=== PATIENT | female | born 1945 | race Caucasian/White ===

== ENCOUNTER 2017-06-18 13:20 | Inpatient (IN) | payer OTHER ==
[~2017-06-18] VITALS: Ht 152.4 cm; Wt 101.2 kg
[~2017-06-18 13:20] MED LIST: ADULT LOW DOSE81 M1 PO; ADVAIR 250/501 DISK IH; AEROBIKA1 EACH MC; AERONEB GO NEB1 EACH MC; AMOX TR-K CLV1 EAC4 PO; ASCORBIC ACID500 M3 PO; ASPIRIN81 M1 PO; ATIVAN0.5 MG PO; AVELOX400 MG PO; AZATHIOPRINE50 MG PO; BALANCE B-501 EAC1 PO; CALCIO DEL MAR500 MG PO; CALCIUM + VITA1 EAC2 PO; CALCIUM 500 MG1 EACH PO; CALCIUM500 M3 PO; CEFTIN500 MG PO; CHILDREN'S ASPI81 M1 PO; COMPLEX B-1001 EACH PO; CYANOCOBALAM1000 MCG PO; CYCLOPHOSPHAMID50 M2 PO; DULCOLAX5 MG PO; DUONEB 2.5-0.5 M3 ML AEROSOL; FISH OIL OMEGA1 EACH PO; FISH OIL300 MG PO; FLAX OIL1000 MG PO; FUROSEMIDE40 MG PO; GLUCOSAMINE &1 EAC1 PO; GUAIFENESIN WI120 M1 PO; HAIR SKIN NAIL1 EACH PO; HAIR, SKIN & N1 EAC1 PO; LASIX20 MG PO; LASIX40 MG PO; LEVAQUIN500 MG PO; LEVOFLOXACIN750 MG PO; LO-DOSE ASPIRIN81 M1 PO; LOPRESSOR50 MG PO; LORAZEPAM0.5 MG PO; LUTEIN PO; METOPROLOL SUCC25 MG PO; METOPROLOL TART25 MG PO; METOPROLOL TART50 MG PO; MICRO-K10 ME2 PO; MIRALAX255 GM PO; MULTIVITAMIN1 EAC2 PO; MULTIVITAMINS1 EAC2 PO; OCUVITE LUTEIN1 EACH PO; POTASSIUM CHLO10 ME3 PO; PREDNISONE10 MG PO; PREDNISONE20 MG PO; PREDNISONE5 MG PO; PROAIR HFA8.5 GM IH; PROBIOTIC1 EAC1 PO; PROVENTIL HFA6.7 GM IH; PROVENTIL,2.5 MG/0.5 AEROSOL; SINGULAIR10 MG PO; SPIRIVA RESPIMAT4 GM IH; SPIRIVA1 INHALATI IH; SUPER CALCIUM600 MG PO; TOPROL XL6.25 MG PO; TRAMADOL HCL50 MG PO; TYLENOL EXTRA500 MG PO; Toprol XL PO; ULTRAM50 MG PO; VENTOLIN HFA18 GM IH; VITAMIN B COMP1 EACH PO; VITAMIN D1000 UNIT PO; VITAMIN D2000 INTUN PO; VITAMIN D31000 UNI2 PO; VITAMIN D31000 UNIT PO; VITAMIN D35000 UNIT PO; VITAMIN E100 UNIT PO; VITAMIN E1000 UNI1 PO; ZESTRIL5 MG PO; ZITHROMAX250 MG PO
[2017-06-18 14:25] LABS: EOSINOPHIL (%) 1.1 % (0-5); EOSINOPHIL COUNT 0.2 K/uL (0-0.3); HEMATOCRIT 37.6 % (36.0-46.0); IMMATURE GRANULOCYTE (%) 0.9 % (0.0-0.7); IMMATURE GRANULOCYTE COUNT 0.1 K/uL; INSTRUMENT ABS NEUTROPHIL CT 13.1 K/uL; LYMPHOCYTE COUNT 0.9 K/uL (1.0-2.8); MCH 29.5 PG (29.0-34.0); MCHC 32.7 G/DL (30.0-36.0); MCV 90.2 FL (83-99); MEAN PLAT.VOLUME 9.3 uM^3 (9.5-12.4); MONOCYTE (%) 6.1 % (3-12); MONOCYTE COUNT 0.9 K/uL (0-0.8); NEUTROPHIL COUNT 13.1 K/uL (1.8-6.4); PLATELET COUNT 211 K/uL (156-360); RBC DIS.WIDTH-CV 13.7 % (11.8-14.6); RBC DIS.WIDTH-SD 45.3 % (39-53); RED BLOOD COUNT 4.17 M/uL (3.80-5.20); WHITE BLOOD COUNT 15.2 K/uL (4.1-10.2)
[2017-06-18 14:34] LABS: CHLORIDE 102 mEq/L (99-109); POTASSIUM 3.4 mEq/L (3.7-5.4); SODIUM 141 mEq/L (136-147)
[2017-06-18 14:36] LABS: GLUCOSE 173 mg/dL (70-99)
[2017-06-18 14:37] LABS: ANION GAP 10 MEQ/L (2-14)
[2017-06-18 14:39] LABS: GFR ESTIMATE (CALCULATED) 47 mL/min/
[2017-06-18 14:40] LABS: UREA NITROGEN (BUN) 31 mg/dL (9-23)
[2017-06-18 14:46] LABS: TROP-I INTERPRETATION NEGATIVE; TROPONIN-I 0.03 ng/mL (0.0-0.30)
[2017-06-18] MEDS ORDERED: FLONASE16 G1 BOTH NARES (18:33)
[2017-06-18] MEDS ORDERED: PREDNISONE2.5 MG PO (18:33)
[2017-06-18] MEDS ORDERED: ADVAIR 250/501 DISK IH (18:36)
[2017-06-18] MEDS ORDERED: MIRALAX17 GM PO (18:37)
[2017-06-18] MEDS ORDERED: POTASSIUM CHLO10 ME4 PO (18:37)
[2017-06-18] MEDS ORDERED: CHILD ASPIRIN81 M1 PO (18:39)
[2017-06-18] MEDS ORDERED: LASIX20 MG PO (18:40)
[2017-06-18] MEDS ORDERED: LASIX40 MG PO (18:40)
[2017-06-18] MEDS ORDERED: CALCIUM600 M1 PO (18:41)
[2017-06-18] MEDS ORDERED: TYLENOL EXTRA500 MG PO (18:43)
[2017-06-18 22:10] LABS: POINT-OF-CARE METER ID UU13113725
[2017-06-18 22:20] VITALS: BP 132/60
[2017-06-19 04:00] VITALS: BP 113/55
[2017-06-19 06:18] LABS: HEMATOCRIT 34.1 % (36.0-46.0); MCH 29.8 PG (29.0-34.0); MCHC 32.8 G/DL (30.0-36.0); MCV 90.7 FL (83-99); MEAN PLAT.VOLUME 9.7 uM^3 (9.5-12.4); PLATELET COUNT 193 K/uL (156-360); RBC DIS.WIDTH-CV 13.7 % (11.8-14.6); RBC DIS.WIDTH-SD 45.1 % (39-53); RED BLOOD COUNT 3.76 M/uL (3.80-5.20); WHITE BLOOD COUNT 12.7 K/uL (4.1-10.2)
[2017-06-19 06:39] LABS: POINT-OF-CARE METER ID UU13113774
[2017-06-19 06:43] LABS: ANION GAP 12 MEQ/L (2-14); CHLORIDE 101 MEQ/L (99-109); GFR ESTIMATE (CALCULATED) 52 mL/min/; GLUCOSE 181 mg/dL (70-99); SAMPLE HEMOLYSIS CHECK 0; SAMPLE ICTERIC CHECK 0; SAMPLE LIPEMIA CHECK 0; SODIUM 143 MEQ/L (136-147); UREA NITROGEN (BUN) 29 mg/dL (9-23)
[2017-06-19 06:44] LABS: POTASSIUM 4.7 MEQ/L (3.7-5.4)
[2017-06-19 08:38] VITALS: BP 117/68
[2017-06-19 11:03] LABS: POINT-OF-CARE METER ID UU13113774
[2017-06-19 12:43] LABS: TROP-I INTERPRETATION NEGATIVE; TROPONIN-I 0.02 ng/mL (0.0-0.30)
[2017-06-19 15:48] VITALS: BP 109/61
[2017-06-19 16:54] LABS: POINT-OF-CARE METER ID UU13113774
[2017-06-19 20:27] VITALS: BP 124/61
[2017-06-19 21:30] LABS: POINT-OF-CARE METER ID UU13113774
[2017-06-20] VITALS (7 sets, daily range): BP systolic 120–155; BP diastolic 57–72
[2017-06-20 06:05] LABS: EOSINOPHIL (%) 0 % (0-5); HEMATOCRIT 34.1 % (36.0-46.0); IMMATURE GRANULOCYTE (%) 0.7 % (0.0-0.7); IMMATURE GRANULOCYTE COUNT 0.1 K/uL; INSTRUMENT ABS NEUTROPHIL CT 12.6 K/uL; LYMPHOCYTE COUNT 0.3 K/uL (1.0-2.8); MCH 29.6 PG (29.0-34.0); MCHC 32.3 G/DL (30.0-36.0); MCV 91.7 FL (83-99); MEAN PLAT.VOLUME 9.8 uM^3 (9.5-12.4); MONOCYTE (%) 3.1 % (3-12); MONOCYTE COUNT 0.4 K/uL (0-0.8); NEUTROPHIL COUNT 12.6 K/uL (1.8-6.4); PLATELET COUNT 190 K/uL (156-360); RBC DIS.WIDTH-CV 13.8 % (11.8-14.6); RBC DIS.WIDTH-SD 46.7 % (39-53); RED BLOOD COUNT 3.72 M/uL (3.80-5.20); WHITE BLOOD COUNT 13.4 K/uL (4.1-10.2)
[2017-06-20 06:19] LABS: POINT-OF-CARE METER ID UU13113774
[2017-06-20 06:27] LABS: ANION GAP 11 MEQ/L (2-14); CHLORIDE 102 MEQ/L (99-109); POTASSIUM 4.4 MEQ/L (3.7-5.4); SAMPLE HEMOLYSIS CHECK 0; SAMPLE ICTERIC CHECK 0; SAMPLE LIPEMIA CHECK 0; SODIUM 143 MEQ/L (136-147)
[2017-06-20 06:33] LABS: GFR ESTIMATE (CALCULATED) 52 mL/min/; GLUCOSE 177 mg/dL (70-99); UREA NITROGEN (BUN) 33 mg/dL (9-23)
[2017-06-20 11:19] LABS: POINT-OF-CARE METER ID UU13113725
[2017-06-20 16:16] LABS: POINT-OF-CARE METER ID UU13113774
[2017-06-20 21:36] LABS: POINT-OF-CARE METER ID UU13113725
[2017-06-21 03:46] VITALS: BP 138/71
[2017-06-21 06:24] LABS: POINT-OF-CARE METER ID UU13113725
[2017-06-21 06:36] LABS: HEMATOCRIT 35.1 % (36.0-46.0); MCH 29.7 PG (29.0-34.0); MCHC 32.8 G/DL (30.0-36.0); MCV 90.7 FL (83-99); NRBC (%) 0.3 /100 WBC (0-0); RBC DIS.WIDTH-CV 13.7 % (11.8-14.6); RBC DIS.WIDTH-SD 45.4 % (39-53); RED BLOOD COUNT 3.87 M/uL (3.80-5.20); WHITE BLOOD COUNT 11.6 K/uL (4.1-10.2)
[2017-06-21 07:18] LABS: HEMATOLOGY COMMENT 1 SMEAR COMPATIBLE; MEAN PLAT.VOLUME 10.5 uM^3 (9.5-12.4); PLAT.SUFFICIENCY ADEQUATE; PLATELET COUNT 186 K/uL (156-360)
[2017-06-21 08:55] VITALS: BP 159/71
[2017-06-21 11:18] LABS: POINT-OF-CARE METER ID UU13113774
[2017-06-21 16:25] LABS: POINT-OF-CARE METER ID UU13113774
[2017-06-21 16:50] VITALS: BP 130/63
[2017-06-21 19:22] VITALS: BP 119/66
[2017-06-21 23:06] LABS: POINT-OF-CARE METER ID UU13113774
[2017-06-21 23:16] VITALS: BP 177/81
[2017-06-22 03:55] VITALS: BP 146/70
[2017-06-22 05:56] LABS: POINT-OF-CARE METER ID UU13113774
[2017-06-22 07:47] VITALS: BP 149/70
[2017-06-22 10:23] LABS: POINT-OF-CARE METER ID UU13113774
[2017-06-22 16:13] LABS: POINT-OF-CARE METER ID UU13113774
[2017-06-22 17:10] VITALS: BP 129/64
[2017-06-22 20:45] LABS: POINT-OF-CARE METER ID UU13113725
[2017-06-22 23:21] VITALS: BP 122/59
[2017-06-23 05:54] LABS: POINT-OF-CARE METER ID UU13113725
[2017-06-23 06:16] LABS: HEMATOCRIT 33.3 % (36.0-46.0); MCH 28.8 PG (29.0-34.0); MCHC 31.8 G/DL (30.0-36.0); MCV 90.5 FL (83-99); MEAN PLAT.VOLUME 9.9 uM^3 (9.5-12.4); PLATELET COUNT 176 K/uL (156-360); RBC DIS.WIDTH-CV 13.4 % (11.8-14.6); RBC DIS.WIDTH-SD 44.9 % (39-53); RED BLOOD COUNT 3.68 M/uL (3.80-5.20); WHITE BLOOD COUNT 8.5 K/uL (4.1-10.2)
[2017-06-23 08:05] VITALS: BP 145/72
[2017-06-23] MEDS ORDERED: FLORASTOR250 MG PO (11:33)
[2017-06-23] MEDS ORDERED: XOPENEX1.25 MG/3 IH (11:33)
[2017-06-23] MEDS ORDERED: CEFDINIR300 MG PO (11:33)
[2017-06-23] MEDS ORDERED: PREDNISONE10 MG PO (11:33)
[2017-06-23] MEDS ORDERED: MUCINEX600 MG PO (11:33)
== END 2017-06-23 14:22 | disposition home or self-care (01) | DRG 199 ==
LOC: EME 13:20 → 5EAST 19:26 → EDOF 19:26 → ENRESERV 19:27 → 5EAST 21:44 → ENPENDDIS 06-23 → 5EAST 06-23 14:22
PROVIDERS: Emergency Medicine; Hospitalist; Internal Medicine; Physician Assistant Medical
PROC: 5A09357 Assistance with Respiratory Ventilation, Less than 24 Consecutive Hours, Continuous Positive Airway Pressure (ICD-10-PCS; principal; 2017-06-18)
DX: J98.2 Interstitial emphysema (principal); J96.01 Acute respiratory failure with hypoxia; J45.901 Unspecified asthma with (acute) exacerbation; M31.31 Wegener's granulomatosis with renal involvement; J20.9 Acute bronchitis, unspecified; J47.0 Bronchiectasis with acute lower respiratory infection; I13.0 Hypertensive heart and chronic kidney disease with heart failure and stage 1 through stage 4 chronic kidney disease, or unspecified chronic kidney disease; N18.3 Chronic kidney disease, stage 3 (moderate); I50.32 Chronic diastolic (congestive) heart failure; I48.0 Paroxysmal atrial fibrillation; Z99.81 Dependence on supplemental oxygen; E66.01 Morbid (severe) obesity due to excess calories; Z68.41 Body mass index [BMI] 40.0-44.9, adult; G47.33 Obstructive sleep apnea (adult) (pediatric); E87.6 Hypokalemia; J04.0 Acute laryngitis; R19.7 Diarrhea, unspecified; E78.5 Hyperlipidemia, unspecified; M19.90 Unspecified osteoarthritis, unspecified site; R73.9 Hyperglycemia, unspecified; T38.0X5A Adverse effect of glucocorticoids and synthetic analogues, initial encounter; R60.0 Localized edema; T63.301S Toxic effect of unspecified spider venom, accidental (unintentional), sequela; Z86.73 Personal history of transient ischemic attack (TIA), and cerebral infarction without residual deficits; Z85.828 Personal history of other malignant neoplasm of skin; Z95.3 Presence of xenogenic heart valve; Z87.891 Personal history of nicotine dependence; Z79.52 Long term (current) use of systemic steroids; Z79.899 Other long term (current) drug therapy; Z79.82 Long term (current) use of aspirin; Z80.0 Family history of malignant neoplasm of digestive organs; Z82.49 Family history of ischemic heart disease and other diseases of the circulatory system
CPT/HCPCS: 71010; 71250; 71275; 80048; 82948; 83880; 84484; 85025; 85027; 85379; 87070; 87106; 87205; 87502; 94640; 94640 76; 94660; 94760; 94799; 99202; 99281; 99285; J0295; J0692; J1815; J1956; J2930; J3475; J7050; J7500; J7512

== ENCOUNTER 2017-11-05 21:57 | Inpatient (IN) | payer OTHER ==
[~2017-11-05] VITALS: Ht 152.4 cm; Wt 109.4 kg
[~2017-11-05 21:57] MED LIST changes: +ACID REDUCER20 MG PO; +BACTROBAN NASAL1 G1 BOTH NARES; +CALCIUM 600 +1 EAC9 PO; +CALCIUM600 M1 PO; +CEFDINIR300 MG PO; +CHILD ASPIRIN81 M1 PO; +FLONASE16 G1 BOTH NARES; +FLORASTOR250 MG PO; +GLUCOSA-CHOND-1 EACH PO; +IMURAN50 MG PO; +MIRALAX17 GM PO; +MUCINEX600 MG PO; +POTASSIUM CHLO10 ME4 PO; +PREDNISONE2.5 MG PO; +XOPENEX1.25 MG/3 IH; +ZINC50 M1 PO
[2017-11-06 09:47] VITALS: BP 134/63
[2017-11-06 14:53] LABS: HEMATOCRIT 33.6 % (36.0-46.0); MCH 29.5 PG (29.0-34.0); MCHC 32.7 G/DL (30.0-36.0); MCV 90.1 FL (83-99); PLATELET COUNT 189 K/uL (156-360); RBC DIS.WIDTH-CV 13.6 % (11.8-14.6); RBC DIS.WIDTH-SD 44.4 % (39-53); RED BLOOD COUNT 3.73 M/uL (3.80-5.20); WHITE BLOOD COUNT 6.8 K/uL (4.1-10.2)
[2017-11-06 16:01] VITALS: BP 118/58
[2017-11-06 20:15] VITALS: BP 126/60
[2017-11-07 00:22] VITALS: BP 116/60
[2017-11-07 04:31] VITALS: BP 112/59
[2017-11-07 06:16] LABS: HEMATOCRIT 31.5 % (36.0-46.0); HEMOGLOBIN 10.1 G/DL (11.9-15.5); MCV 89.5 FL (83-99)
[2017-11-07 06:27] LABS: CHLORIDE 105 MEQ/L (99-109); CREATININE 0.9 MG/DL (0.6-1.3); GFR ESTIMATE (CALCULATED) > 59 mL/min/; GLUCOSE 114 mg/dL (70-99); POTASSIUM 3.7 MEQ/L (3.7-5.4); SODIUM 143 MEQ/L (136-147); UREA NITROGEN (BUN) 23 mg/dL (9-23)
[2017-11-07 08:00] VITALS: BP 114/58
[2017-11-07 15:42] VITALS: BP 109/59
[2017-11-07 20:15] VITALS: BP 112/58
[2017-11-08] VITALS (7 sets, daily range): BP systolic 91–143; BP diastolic 52–75
[2017-11-08 06:01] LABS: HEMATOCRIT 30.8 % (36.0-46.0); HEMOGLOBIN 9.8 G/DL (11.9-15.5); MCV 90.1 FL (83-99)
[2017-11-08 20:11] LABS: INTER. NORMALIZED RATIO 1.3
[2017-11-08 20:14] LABS: PTT 29.8 SEC (25-37)
[2017-11-08 20:18] LABS: ALBUMIN 3.4 G/DL (3.2-4.8); BASOPHIL (%) 0.6 % (0-1); BASOPHIL COUNT 0.1 K/uL (0-0.1); CHLORIDE 105 MEQ/L (99-109); EOSINOPHIL (%) 2.5 % (0-5); EOSINOPHIL COUNT 0.3 K/uL (0-0.3); HEMATOCRIT 30.9 % (36.0-46.0); HEMOGLOBIN 10.2 G/DL (11.9-15.5); IMMATURE GRANULOCYTE (%) 0.5 % (0.0-0.7); LYMPHOCYTE (%) 11.5 % (15-42); LYMPHOCYTE COUNT 1.3 K/uL (1.0-2.8); MCH 29.3 PG (29.0-34.0); MCV 88.8 FL (83-99); MONOCYTE (%) 10.1 % (3-12); MONOCYTE COUNT 1.1 K/uL (0-0.8); NEUTROPHIL (%) 74.8 % (45-76); NEUTROPHIL COUNT 8.3 K/uL (1.8-6.4); PLATELET COUNT 179 K/uL (156-360); POTASSIUM 3.4 MEQ/L (3.7-5.4); RBC DIS.WIDTH-CV 13.8 % (11.8-14.6); RBC DIS.WIDTH-SD 44.8 % (39-53); RED BLOOD COUNT 3.48 M/uL (3.80-5.20); SODIUM 141 MEQ/L (136-147); TOTAL BILIRUBIN 0.4 MG/DL (0.0-1.0); WHITE BLOOD COUNT 11.1 K/uL (4.1-10.2)
[2017-11-08 20:24] LABS: ALKALINE PHOSPHATASE 57 IU/L (3-129); ALT (GPT) 5 IU/L (3-49); AST (GOT) 16 IU/L (2-34); CREATININE 1.3 MG/DL (0.6-1.3); GFR ESTIMATE (CALCULATED) 43 mL/min/; GLUCOSE 146 mg/dL (70-99); TOTAL PROTEIN 6.9 G/DL (6.4-8.3); UREA NITROGEN (BUN) 23 mg/dL (9-23)
[2017-11-08 20:28] LABS: TROP-I INTERPRETATION NEGATIVE; TROPONIN-I 0.04 ng/mL (0.0-0.30)
[2017-11-08 21:47] LABS: MAGNESIUM 1.7 mg/dl (1.3-2.7)
[2017-11-08 21:52] LABS: PHOSPHORUS 1.7 mg/dL (2.5-4.9)
[2017-11-09 00:10] VITALS: BP 103/57; BP 13/57
[2017-11-09 00:31] LABS: APPEARANCE CLEAR ((CLEAR)); BILIRUBIN NEGATIVE; BLOOD NEGATIVE; COLOR YELLOW ((YELLOW)); GLUCOSE (STRIP) NEGATIVE; KETONES NEGATIVE; LEUKOCYTES NEGATIVE; NITRITE NEGATIVE; PROTEIN (STRIP) NEGATIVE; SPECIFIC GRAVITY 1.032 (1.000-1.030); UCUL ADDED? NO; UROBILINOGEN 0.2 MG/DL (0.2-1.0)
[2017-11-09 05:15] VITALS: BP 114/56
[2017-11-09 07:30] VITALS: BP 134/68
[2017-11-09 10:19] LABS: HEMATOCRIT 29.7 % (36.0-46.0); HEMOGLOBIN 9.6 G/DL (11.9-15.5); MCH 29.4 PG (29.0-34.0); MCHC 32.3 G/DL (30.0-36.0); MCV 90.8 FL (83-99); PLATELET COUNT 183 K/uL (156-360); RED BLOOD COUNT 3.27 M/uL (3.80-5.20); WHITE BLOOD COUNT 9.8 K/uL (4.1-10.2)
[2017-11-09 10:47] LABS: TROP-I INTERPRETATION NEGATIVE; TROPONIN-I 0.04 ng/mL (0.0-0.30)
[2017-11-09 11:19] VITALS: BP 136/89
[2017-11-09] MEDS ORDERED: COREG3.125 M1 PO (11:45)
[2017-11-09 12:49] VITALS: BP 134/63
== END 2017-11-09 13:56 | DRG 470 ==
LOC: ENRESERV 21:57 → 2SOUTH 11-06 08:29 → 4EAST 11-06 08:29 → 3WEST 11-06 08:29 → 2SOUTH 11-06 11:33 → 3WEST 11-06 15:35 → 2SOUTH 11-06 16:07 → ENRESERV 11-08 20:17 → 4EAST 11-08 20:20 → CANRESERV 11-08 20:36 → ENRESERV 11-08 20:36 → 4EAST 11-08 21:13
PROVIDERS: Hospitalist; Internal Medicine; Orthopaedic Surgery
PROC: 0SRD0J9 Replacement of Left Knee Joint with Synthetic Substitute, Cemented, Open Approach (ICD-10-PCS; principal; 2017-11-06)
PROC: 5A09357 Assistance with Respiratory Ventilation, Less than 24 Consecutive Hours, Continuous Positive Airway Pressure (ICD-10-PCS; 2017-11-06)
DX: M17.12 Unilateral primary osteoarthritis, left knee (principal); I48.0 Paroxysmal atrial fibrillation; R50.82 Postprocedural fever; E66.01 Morbid (severe) obesity due to excess calories; Z68.42 Body mass index [BMI] 45.0-49.9, adult; M31.30 Wegener's granulomatosis without renal involvement; I69.354 Hemiplegia and hemiparesis following cerebral infarction affecting left non-dominant side; I69.319 Unspecified symptoms and signs involving cognitive functions following cerebral infarction; I11.0 Hypertensive heart disease with heart failure; I50.32 Chronic diastolic (congestive) heart failure; J44.9 Chronic obstructive pulmonary disease, unspecified; E78.5 Hyperlipidemia, unspecified; Z87.01 Personal history of pneumonia (recurrent); I49.3 Ventricular premature depolarization; I25.10 Atherosclerotic heart disease of native coronary artery without angina pectoris; M81.0 Age-related osteoporosis without current pathological fracture; G62.9 Polyneuropathy, unspecified; M10.9 Gout, unspecified; K21.9 Gastro-esophageal reflux disease without esophagitis; G47.33 Obstructive sleep apnea (adult) (pediatric); Z87.891 Personal history of nicotine dependence; Z95.2 Presence of prosthetic heart valve; Z96.651 Presence of right artificial knee joint; Z79.52 Long term (current) use of systemic steroids
CPT/HCPCS: 71045; 71275; 73560; 80048; 80053; 81003; 83605; 83735; 84100; 84484; 85014; 85018; 85025; 85027; 85379; 85610; 85730; 87040; 93005; 94640; 94640 76; 94660; 94760; 94799; A6214; C1713; J0131; J0690; J1100; J1650; J2250; J2543; J2795; J3370; J7030; J7050; J7500; J7512

== ENCOUNTER 2017-11-25 03:11 | Inpatient (IN) | payer OTHER ==
[~2017-11-25] VITALS: Ht 152.4 cm; Wt 94.0 kg
[~2017-11-25 03:11] MED LIST changes: +COREG3.125 M1 PO
[2017-11-25 04:22] LABS: HEMATOCRIT 29.3 % (36.0-46.0); HEMOGLOBIN 9.6 G/DL (11.9-15.5); MCH 29.4 PG (29.0-34.0); MCHC 32.8 G/DL (30.0-36.0); MCV 89.6 FL (83-99); PLATELET COUNT 335 K/uL (156-360); RBC DIS.WIDTH-CV 14.6 % (11.8-14.6); RED BLOOD COUNT 3.27 M/uL (3.80-5.20); WHITE BLOOD COUNT 8.2 K/uL (4.1-10.2)
[2017-11-25 04:28] LABS: INTER. NORMALIZED RATIO 1.4
[2017-11-25 04:31] LABS: PTT 33.7 SEC (25-37)
[2017-11-25 04:42] LABS: CHLORIDE 103 mEq/L (99-109); POTASSIUM 4.2 mEq/L (3.7-5.4); SODIUM 139 mEq/L (136-147)
[2017-11-25 04:44] LABS: GLUCOSE 105 mg/dL (70-99)
[2017-11-25 04:48] LABS: CREATININE 1.4 mg/dL (0.6-1.3); GFR ESTIMATE (CALCULATED) 39 mL/min/
[2017-11-25 04:49] LABS: UREA NITROGEN (BUN) 31 mg/dL (9-23)
[2017-11-25] MEDS ORDERED: LEVAQUIN500 MG PO (08:41)
[2017-11-25] MEDS ORDERED: ZESTRIL2.5 MG PO (08:41)
[2017-11-25] MEDS ORDERED: LOVENOX40 MG/0.4 SC (08:42)
[2017-11-25] MEDS ORDERED: MYCOSTATIN1 APPLICAT TP (08:46)
[2017-11-25] MEDS ORDERED: DUONEB 2.5-0.5 M3 ML AEROSOL ×2 (08:48→08:52)
[2017-11-25] MEDS ORDERED: ACETAMINOPHEN325 M1 PO (08:49)
[2017-11-25] MEDS ORDERED: ACETYLCYST100 MG/1 M IH (08:50)
[2017-11-25] MEDS ORDERED: DULCOLAX10 MG PR (08:51)
[2017-11-25] MEDS ORDERED: MILK OF MAGN PO (08:53)
[2017-11-25] MEDS ORDERED: MIRALAX17 GM PO (08:54)
[2017-11-25] MEDS ORDERED: TRAMADOL HCL50 MG PO (08:55)
[2017-11-25] MEDS ORDERED: ROBITUSSIN DM118 ML PO (08:55)
[2017-11-25 10:50] VITALS: BP 108/47
[2017-11-25 12:40] VITALS: BP 108/60
[2017-11-25 15:57] VITALS: BP 101/51
[2017-11-25 16:23] LABS: APPEARANCE CLEAR ((CLEAR)); BILIRUBIN NEGATIVE; BLOOD NEGATIVE; COLOR YELLOW ((YELLOW)); GLUCOSE (STRIP) NEGATIVE; KETONES NEGATIVE; LEUKOCYTES NEGATIVE; NITRITE NEGATIVE; PROTEIN (STRIP) NEGATIVE; SPECIFIC GRAVITY 1.044 (1.000-1.030); UCUL ADDED? NO; UROBILINOGEN 0.2 MG/DL (0.2-1.0)
[2017-11-25 19:50] VITALS: BP 113/56
[2017-11-25 23:35] VITALS: BP 98/58
[2017-11-26 03:20] VITALS: BP 110/57
[2017-11-26 05:56] LABS: HEMATOCRIT 29.5 % (36.0-46.0); HEMOGLOBIN 9.2 G/DL (11.9-15.5); MCH 28.4 PG (29.0-34.0); MCHC 31.2 G/DL (30.0-36.0); PLATELET COUNT 240 K/uL (156-360); RBC DIS.WIDTH-CV 14.5 % (11.8-14.6); RBC DIS.WIDTH-SD 48.3 % (39-53); RED BLOOD COUNT 3.24 M/uL (3.80-5.20); WHITE BLOOD COUNT 12.1 K/uL (4.1-10.2)
[2017-11-26 06:35] LABS: CHLORIDE 104 MEQ/L (99-109); CREATININE 1.1 MG/DL (0.6-1.3); GFR ESTIMATE (CALCULATED) 52 mL/min/; GLUCOSE 164 mg/dL (70-99); POTASSIUM 4.2 MEQ/L (3.7-5.4); SODIUM 140 MEQ/L (136-147); UREA NITROGEN (BUN) 30 mg/dL (9-23)
[2017-11-26 08:09] VITALS: BP 114/62
[2017-11-26 11:46] VITALS: BP 92/53
[2017-11-26 13:51] VITALS: BP 92/42
[2017-11-26 16:04] VITALS: BP 97/56
[2017-11-26 20:28] VITALS: BP 97/55
[2017-11-27] VITALS (7 sets, daily range): BP systolic 108–135; BP diastolic 56–70
[2017-11-27 06:14] LABS: BASOPHIL (%) 0 % (0-1); EOSINOPHIL (%) 0 % (0-5); HEMATOCRIT 27.8 % (36.0-46.0); HEMOGLOBIN 8.8 G/DL (11.9-15.5); IMMATURE GRANULOCYTE (%) 0.8 % (0.0-0.7); LYMPHOCYTE (%) 2.5 % (15-42); LYMPHOCYTE COUNT 0.3 K/uL (1.0-2.8); MCH 29.3 PG (29.0-34.0); MCHC 31.7 G/DL (30.0-36.0); MCV 92.7 FL (83-99); MONOCYTE (%) 2.8 % (3-12); MONOCYTE COUNT 0.3 K/uL (0-0.8); NEUTROPHIL (%) 93.9 % (45-76); NEUTROPHIL COUNT 9.6 K/uL (1.8-6.4); PLATELET COUNT 269 K/uL (156-360); RBC DIS.WIDTH-CV 14.7 % (11.8-14.6); RBC DIS.WIDTH-SD 49.9 % (39-53); WHITE BLOOD COUNT 10.2 K/uL (4.1-10.2)
[2017-11-27 06:35] LABS: CHLORIDE 106 MEQ/L (99-109); CREATININE 1.1 MG/DL (0.6-1.3); GFR ESTIMATE (CALCULATED) 52 mL/min/; GLUCOSE 205 mg/dL (70-99); POTASSIUM 4.4 MEQ/L (3.7-5.4); SODIUM 140 MEQ/L (136-147); UREA NITROGEN (BUN) 41 mg/dL (9-23)
[2017-11-27 09:49] LABS: STOOL OCCULT BLD 1ST SPECIMEN NEGATIVE
[2017-11-28 04:15] VITALS: BP 120/68
[2017-11-28 06:41] LABS: BASOPHIL (%) 0.1 % (0-1); EOSINOPHIL (%) 0 % (0-5); HEMATOCRIT 31.1 % (36.0-46.0); HEMOGLOBIN 9.5 G/DL (11.9-15.5); IMMATURE GRANULOCYTE (%) 0.6 % (0.0-0.7); LYMPHOCYTE (%) 8.3 % (15-42); LYMPHOCYTE COUNT 0.7 K/uL (1.0-2.8); MCH 28.8 PG (29.0-34.0); MCHC 30.5 G/DL (30.0-36.0); MCV 94.2 FL (83-99); MONOCYTE (%) 8.1 % (3-12); MONOCYTE COUNT 0.7 K/uL (0-0.8); NEUTROPHIL (%) 82.9 % (45-76); NEUTROPHIL COUNT 7.1 K/uL (1.8-6.4); PLATELET COUNT 275 K/uL (156-360); RBC DIS.WIDTH-CV 14.5 % (11.8-14.6); RBC DIS.WIDTH-SD 50.1 % (39-53); WHITE BLOOD COUNT 8.6 K/uL (4.1-10.2)
[2017-11-28 07:03] LABS: CHLORIDE 108 MEQ/L (99-109); CREATININE 1.2 MG/DL (0.6-1.3); GFR ESTIMATE (CALCULATED) 47 mL/min/; GLUCOSE 145 mg/dL (70-99); POTASSIUM 4.3 MEQ/L (3.7-5.4); SODIUM 144 MEQ/L (136-147); UREA NITROGEN (BUN) 42 mg/dL (9-23)
[2017-11-28 08:44] VITALS: BP 120/80
[2017-11-28 11:27] VITALS: BP 130/80
[2017-11-28 16:18] VITALS: BP 120/60
[2017-11-28 20:21] VITALS: BP 138/72
[2017-11-28 23:38] VITALS: BP 143/62
[2017-11-29 04:30] VITALS: BP 114/55
[2017-11-29 06:40] LABS: BASOPHIL (%) 0.2 % (0-1); EOSINOPHIL (%) 0.5 % (0-5); HEMATOCRIT 31.5 % (36.0-46.0); HEMOGLOBIN 9.9 G/DL (11.9-15.5); IMMATURE GRANULOCYTE (%) 2.7 % (0.0-0.7); LYMPHOCYTE (%) 18.1 % (15-42); LYMPHOCYTE COUNT 1.2 K/uL (1.0-2.8); MCH 29.2 PG (29.0-34.0); MCHC 31.4 G/DL (30.0-36.0); MCV 92.9 FL (83-99); MONOCYTE (%) 10.7 % (3-12); MONOCYTE COUNT 0.7 K/uL (0-0.8); NEUTROPHIL (%) 67.8 % (45-76); NEUTROPHIL COUNT 4.5 K/uL (1.8-6.4); PLATELET COUNT 253 K/uL (156-360); RBC DIS.WIDTH-CV 14.4 % (11.8-14.6); RBC DIS.WIDTH-SD 48.5 % (39-53); RED BLOOD COUNT 3.39 M/uL (3.80-5.20); WHITE BLOOD COUNT 6.6 K/uL (4.1-10.2)
[2017-11-29 07:11] LABS: CHLORIDE 109 MEQ/L (99-109); CREATININE 0.8 MG/DL (0.6-1.3); GFR ESTIMATE (CALCULATED) > 59 mL/min/; POTASSIUM 4.4 MEQ/L (3.7-5.4); SODIUM 143 MEQ/L (136-147); UREA NITROGEN (BUN) 33 mg/dL (9-23)
[2017-11-29 07:14] LABS: GLUCOSE 105 mg/dL (70-99)
[2017-11-29 07:39] VITALS: BP 130/72
[2017-11-29 11:47] VITALS: BP 102/68
[2017-11-29 15:58] VITALS: BP 116/72
[2017-11-29 20:17] VITALS: BP 105/58
[2017-11-29 23:36] VITALS: BP 148/74
[2017-11-30 04:32] VITALS: BP 165/77
[2017-11-30 05:53] LABS: BASOPHIL (%) 0.1 % (0-1); EOSINOPHIL COUNT 0.1 K/uL (0-0.3); HEMOGLOBIN 9.4 G/DL (11.9-15.5); IMMATURE GRANULOCYTE (%) 3.2 % (0.0-0.7); LYMPHOCYTE (%) 17.6 % (15-42); LYMPHOCYTE COUNT 1.2 K/uL (1.0-2.8); MCH 28.6 PG (29.0-34.0); MCHC 31.3 G/DL (30.0-36.0); MCV 91.2 FL (83-99); MONOCYTE (%) 9.8 % (3-12); MONOCYTE COUNT 0.7 K/uL (0-0.8); NEUTROPHIL (%) 68.3 % (45-76); NEUTROPHIL COUNT 4.7 K/uL (1.8-6.4); PLATELET COUNT 210 K/uL (156-360); RBC DIS.WIDTH-CV 14.2 % (11.8-14.6); RBC DIS.WIDTH-SD 47.4 % (39-53); RED BLOOD COUNT 3.29 M/uL (3.80-5.20); WHITE BLOOD COUNT 6.9 K/uL (4.1-10.2)
[2017-11-30 06:17] LABS: CHLORIDE 109 MEQ/L (99-109); CREATININE 0.8 MG/DL (0.6-1.3); GFR ESTIMATE (CALCULATED) > 59 mL/min/; GLUCOSE 113 mg/dL (70-99); POTASSIUM 4.3 MEQ/L (3.7-5.4); SODIUM 143 MEQ/L (136-147); UREA NITROGEN (BUN) 26 mg/dL (9-23)
[2017-11-30 07:56] VITALS: BP 130/80
[2017-11-30] MEDS ORDERED: BACTRIM,SEPT1 TABLET PO (10:13)
[2017-11-30 11:29] VITALS: BP 128/70
[2017-11-30] MEDS ORDERED: CELEBREX200 MG PO (14:49)
[2017-11-30] MEDS ORDERED: ATENOLOL50 MG PO (14:50)
[2017-11-30] MEDS ORDERED: ZESTORETIC 10-1 EAC1 PO (14:50)
[2017-11-30] MEDS ORDERED: ENOXAPARIN40 MG/0.4 SC (14:52)
[2017-11-30] MEDS ORDERED: TIZANIDINE HCL4 M1 PO (14:53)
[2017-11-30] MEDS ORDERED: SENNA S TABLET1 EACH PO (14:53)
[2017-11-30] MEDS ORDERED: NORCO 10/3251 TABLET PO (14:55)
[2017-11-30] MEDS ORDERED: NORCO 5/3251 TABLET PO (14:55)
[2017-11-30] MEDS ORDERED: MUCUS-ER MAX1200 MG PO (16:43)
[2017-11-30] MEDS ORDERED: DULERA 100 MCG/13 GM IH (16:45)
[2017-11-30] MEDS ORDERED: VANCOMYCIN1.25 GM/25 IV (16:45)
[2017-11-30] MEDS ORDERED: FLONASE16 G1 BOTH NARES (16:47)
[2017-11-30] MEDS ORDERED: PEPCID AC20 MG PO (16:48)
[2017-11-30] MEDS ORDERED: PEPCID20 MG PO (16:48)
[2017-11-30] MEDS ORDERED: BENZONATATE200 MG PO (16:49)
== END 2017-11-30 14:13 | DRG 189 ==
LOC: EME → EDBD 03:11 → 3EAST 07:10 → EDOF 07:10 → ENRESERV 07:13 → 3EAST 09:10
PROVIDERS: Emergency Medicine; Internal Medicine
PROC: 5A09357 Assistance with Respiratory Ventilation, Less than 24 Consecutive Hours, Continuous Positive Airway Pressure (ICD-10-PCS; principal; 2017-11-25)
DX: J96.01 Acute respiratory failure with hypoxia (principal); N17.9 Acute kidney failure, unspecified; I50.32 Chronic diastolic (congestive) heart failure; M31.30 Wegener's granulomatosis without renal involvement; J44.1 Chronic obstructive pulmonary disease with (acute) exacerbation; Z68.41 Body mass index [BMI] 40.0-44.9, adult; I48.91 Unspecified atrial fibrillation; B95.62 Methicillin resistant Staphylococcus aureus infection as the cause of diseases classified elsewhere; J20.8 Acute bronchitis due to other specified organisms; T45.1X5A Adverse effect of antineoplastic and immunosuppressive drugs, initial encounter; D64.9 Anemia, unspecified; E66.9 Obesity, unspecified; G47.33 Obstructive sleep apnea (adult) (pediatric); I11.0 Hypertensive heart disease with heart failure; I25.10 Atherosclerotic heart disease of native coronary artery without angina pectoris; J84.10 Pulmonary fibrosis, unspecified; K21.9 Gastro-esophageal reflux disease without esophagitis; Z77.090 Contact with and (suspected) exposure to asbestos; Z96.652 Presence of left artificial knee joint; I77.819 Aortic ectasia, unspecified site; M19.90 Unspecified osteoarthritis, unspecified site; Z79.82 Long term (current) use of aspirin; Z86.73 Personal history of transient ischemic attack (TIA), and cerebral infarction without residual deficits; Z87.891 Personal history of nicotine dependence; Z95.3 Presence of xenogenic heart valve; Z99.81 Dependence on supplemental oxygen; Z80.0 Family history of malignant neoplasm of digestive organs
CPT/HCPCS: 71275; 80048; 80202; 81003; 82272; 83605; 85025; 85027; 85610; 85730; 87040; 87070; 87077; 87147; 87186; 87205; 94640; 94640 76; 94799; 97530 GP; 99202; 99281; 99284; J0692; J0696; J1650; J1956; J2930; J3370; J7030; J7040; J7500; J7512

== ENCOUNTER 2017-11-30 12:01 | Inpatient (IN) | payer OTHER ==
[~2017-11-30] VITALS: Ht 152.4 cm; Wt 99.8 kg
[~2017-11-30 12:01] MED LIST changes: +ACETAMINOPHEN325 M1 PO; +ACETYLCYST100 MG/1 M IH; +BACTRIM,SEPT1 TABLET PO; +DULCOLAX10 MG PR; +LOVENOX40 MG/0.4 SC; +MILK OF MAGN PO; +MYCOSTATIN1 APPLICAT TP; +ROBITUSSIN DM118 ML PO; +ZESTRIL2.5 MG PO
[2017-11-30 14:36] VITALS: BP 132/61
[2017-11-30] MEDS ORDERED: CELEBREX200 MG PO (14:49)
[2017-11-30] MEDS ORDERED: ATENOLOL50 MG PO (14:50)
[2017-11-30] MEDS ORDERED: ZESTORETIC 10-1 EAC1 PO (14:50)
[2017-11-30] MEDS ORDERED: ENOXAPARIN40 MG/0.4 SC (14:52)
[2017-11-30] MEDS ORDERED: SENNA S TABLET1 EACH PO (14:53)
[2017-11-30] MEDS ORDERED: TIZANIDINE HCL4 M1 PO (14:53)
[2017-11-30] MEDS ORDERED: NORCO 10/3251 TABLET PO (14:55)
[2017-11-30] MEDS ORDERED: NORCO 5/3251 TABLET PO (14:55)
[2017-11-30] MEDS ORDERED: MUCUS-ER MAX1200 MG PO (16:43)
[2017-11-30] MEDS ORDERED: VANCOMYCIN1.25 GM/25 IV (16:45)
[2017-11-30] MEDS ORDERED: DULERA 100 MCG/13 GM IH (16:45)
[2017-11-30] MEDS ORDERED: FLONASE16 G1 BOTH NARES (16:47)
[2017-11-30] MEDS ORDERED: PEPCID AC20 MG PO (16:48)
[2017-11-30] MEDS ORDERED: PEPCID20 MG PO (16:48)
[2017-11-30] MEDS ORDERED: BENZONATATE200 MG PO (16:49)
[2017-12-01 00:14] VITALS: BP 136/58
[2017-12-01 05:31] VITALS: BP 130/68
[2017-12-01 16:20] VITALS: BP 126/64
[2017-12-02 04:02] VITALS: BP 165/72
[2017-12-02 16:10] VITALS: BP 115/58
[2017-12-03 04:49] VITALS: BP 138/60
[2017-12-03 15:33] VITALS: BP 135/75
[2017-12-04 05:29] VITALS: BP 136/72
[2017-12-04 16:19] VITALS: BP 108/59
[2017-12-05 05:09] VITALS: BP 128/62
[2017-12-05 15:29] VITALS: BP 107/60
[2017-12-06 05:35] VITALS: BP 161/74
[2017-12-06 15:08] LABS: HEMATOCRIT 35.9 % (36.0-46.0); MCHC 32.3 G/DL (30.0-36.0); MCV 89.8 FL (83-99); PLATELET COUNT 246 K/uL (156-360); RBC DIS.WIDTH-CV 14.6 % (11.8-14.6); RBC DIS.WIDTH-SD 48.1 % (39-53); WHITE BLOOD COUNT 13.5 K/uL (4.1-10.2)
[2017-12-06 15:10] LABS: HEMOGLOBIN 11.6 G/DL (11.9-15.5)
[2017-12-06 15:17] LABS: ALBUMIN 3.8 G/DL (3.2-4.8); CHLORIDE 101 MEQ/L (99-109); TOTAL BILIRUBIN 0.5 MG/DL (0.0-1.0)
[2017-12-06 15:27] LABS: POTASSIUM 5.5 MEQ/L (3.7-5.4); SODIUM 133 MEQ/L (136-147)
[2017-12-06 15:31] VITALS: BP 112/73
[2017-12-06 15:35] LABS: ALKALINE PHOSPHATASE 55 IU/L (3-129); ALT (GPT) 18 IU/L (3-49); AST (GOT) 22 IU/L (2-34); CREATININE 1.2 MG/DL (0.6-1.3); GFR ESTIMATE (CALCULATED) 47 mL/min/; GLUCOSE 153 mg/dL (70-99); TOTAL PROTEIN 7.3 G/DL (6.4-8.3); UREA NITROGEN (BUN) 36 mg/dL (9-23)
[2017-12-06] MEDS ORDERED: DULERA 100 MCG/13 GM IH (18:35)
[2017-12-06] MEDS ORDERED: TRAMADOL HCL50 MG PO (18:35)
[2017-12-06] MEDS ORDERED: SPIRIVA RESPIMAT4 GM IH (18:35)
[2017-12-06] MEDS ORDERED: FLONASE16 G1 BOTH NARES (18:35)
[2017-12-06] MEDS ORDERED: PREDNISONE5 MG PO (18:35)
[2017-12-06] MEDS ORDERED: SINGULAIR10 MG PO (18:35)
[2017-12-07 05:07] VITALS: BP 138/78
[2017-12-07 08:41] LABS: BASOPHIL (%) 0.1 % (0-1); EOSINOPHIL (%) 1.2 % (0-5); EOSINOPHIL COUNT 0.1 K/uL (0-0.3); HEMATOCRIT 35.8 % (36.0-46.0); HEMOGLOBIN 11.3 G/DL (11.9-15.5); IMMATURE GRANULOCYTE (%) 1.5 % (0.0-0.7); LYMPHOCYTE (%) 18.4 % (15-42); LYMPHOCYTE COUNT 1.4 K/uL (1.0-2.8); MCH 28.5 PG (29.0-34.0); MCHC 31.6 G/DL (30.0-36.0); MCV 90.2 FL (83-99); MONOCYTE (%) 7.5 % (3-12); MONOCYTE COUNT 0.6 K/uL (0-0.8); NEUTROPHIL (%) 71.3 % (45-76); NEUTROPHIL COUNT 5.5 K/uL (1.8-6.4); PLATELET COUNT 234 K/uL (156-360); RBC DIS.WIDTH-CV 14.6 % (11.8-14.6); RBC DIS.WIDTH-SD 48.3 % (39-53); RED BLOOD COUNT 3.97 M/uL (3.80-5.20); WHITE BLOOD COUNT 7.8 K/uL (4.1-10.2)
[2017-12-07 10:49] LABS: CHLORIDE 106 MEQ/L (99-109); CREATININE 1.2 MG/DL (0.6-1.3); GFR ESTIMATE (CALCULATED) 47 mL/min/; GLUCOSE 101 mg/dL (70-99); POTASSIUM 4.8 MEQ/L (3.7-5.4); SODIUM 135 MEQ/L (136-147); UREA NITROGEN (BUN) 33 mg/dL (9-23)
== END 2017-12-07 14:45 | disposition home health service (06) | DRG 945 ==
LOC: 3WEST 12:01 → ENPENDDIS 12-06 → 3WEST 12-07 14:45
PROVIDERS: Physical Medicine & Rehabilitation Pain Medicine
PROC: F07M0ZZ Range of Motion and Joint Mobility Treatment of Musculoskeletal System - Whole Body (ICD-10-PCS; principal; 2017-11-30)
DX: R53.1 Weakness (principal); R26.9 Unspecified abnormalities of gait and mobility; J20.9 Acute bronchitis, unspecified; J45.901 Unspecified asthma with (acute) exacerbation; G89.18 Other acute postprocedural pain; Z96.652 Presence of left artificial knee joint; M31.30 Wegener's granulomatosis without renal involvement; E87.1 Hypo-osmolality and hyponatremia; E87.5 Hyperkalemia; Z68.41 Body mass index [BMI] 40.0-44.9, adult; Z99.81 Dependence on supplemental oxygen; I11.0 Hypertensive heart disease with heart failure; I50.32 Chronic diastolic (congestive) heart failure; J84.10 Pulmonary fibrosis, unspecified; D72.829 Elevated white blood cell count, unspecified; T38.0X5A Adverse effect of glucocorticoids and synthetic analogues, initial encounter; D64.9 Anemia, unspecified; G47.33 Obstructive sleep apnea (adult) (pediatric); I48.91 Unspecified atrial fibrillation; G89.29 Other chronic pain; R01.1 Cardiac murmur, unspecified; Z95.2 Presence of prosthetic heart valve; E66.9 Obesity, unspecified; Z86.73 Personal history of transient ischemic attack (TIA), and cerebral infarction without residual deficits
CPT/HCPCS: 71046; 80048; 80053; 85025; 85027; 94640 76; 94660; 94799; 97110 GO; 97530 GP; 99201 TC; J7500; J7512